=== PATIENT | female | born 1990 | race Caucasian/White ===

== ENCOUNTER 2019-02-13 16:52 | Emergency (ER) | payer OTHER ==
[~2019-02-13] VITALS: Ht 162.6 cm; Wt 59.0 kg
[2019-02-13] MEDS ORDERED: VYVANSE20 M1 (17:16)
== END 2019-02-13 19:38 | disposition home or self-care (01) ==
LOC: ER 16:52
DX: J03.80 Acute tonsillitis due to other specified organisms (principal); B96.89 Other specified bacterial agents as the cause of diseases classified elsewhere

== ENCOUNTER 2020-05-20 16:06 | Emergency (ER) | payer OTHER ==
[~2020-05-20] VITALS: Ht 157.5 cm; Wt 52.2 kg
[~2020-05-20 16:06] MED LIST: VYVANSE20 M1
== END 2020-05-20 18:50 | disposition home or self-care (01) ==
LOC: ER 16:06
DX: B34.9 Viral infection, unspecified (principal); Z20.828 Contact with and (suspected) exposure to other viral communicable diseases

== ENCOUNTER 2022-09-23 19:26 | Emergency (ER) | payer OTHER ==
[~2022-09-23] VITALS: Ht 162.6 cm; Wt 56.7 kg
== END 2022-09-23 22:27 | disposition home or self-care (01) ==
LOC: ER 19:26
DX: S29.9XXA Unspecified injury of thorax, initial encounter (principal); W01.0XXA Fall on same level from slipping, tripping and stumbling without subsequent striking against object, initial encounter; Y93.9 Activity, unspecified; Y92.9 Unspecified place or not applicable

== ENCOUNTER 2024-02-20 16:47 | Outpatient (CLI) | payer OTHER | END 2024-02-20 23:00 | disposition home or self-care (01) | LOC: RAD 16:47 | PROVIDERS: ATTEND General Practice | DX: R07.1 Chest pain on breathing (principal) ==

== ENCOUNTER 2025-03-26 18:03 | Emergency (ER) | payer OTHER ==
[~2025-03-26] VITALS: Ht 162.6 cm; Wt 56.7 kg
[2025-03-26] MEDS ORDERED: DROSP-EE-LEVOM1 EACH (18:13)
[2025-03-26] MEDS ORDERED: AMPHETAMINE SAL20 MG PO (18:13)
[2025-03-26 20:16] LABS: BASO % 1.1 % (0.1-1.2); EOS # 0.15 (0.04-0.54); EOS % 2.8 % (0.7-7.0); LYMPH # 1.49 (1.18-3.74); LYMPH % 28.3 % (19.3-53.1); MEAN PLATELET VOLUME 9.20 fl (9.4-12.4); MONO # 0.53 (0.24-0.82); MONO % 10.1 % (4.7-12.5); NEUT # 3.03 (1.56-6.13); NEUT % 57.5 % (34.0-71.1); RED CELL DISTRIBUTION WIDTH 11.6 % (11.6-14.4)
[2025-03-26 20:30] LABS: URINE APPEARANCE Clear; URINE BILIRRUBIN Negative (NEGATIVE); URINE BLOOD Negative; URINE COLOR Yellow; URINE GLUCOSE Negative (NEGATIVE); URINE KETONE Negative (NEGATIVE); URINE LEUKOCYTE Negative; URINE NITRATE Negative; URINE PROTEIN Negative (NEGATIVE); URINE UROBILINOGEN 0.2 E.U./dl
[2025-03-26 20:33] LABS: URINE BACTERIA 807.6 uL (0.0-1933); URINE EPITHELIAL CELLS 4.7 uL (0.0-38.8); URINE RBC 7.7 uL (0.0-20.8); URINE WBC 14.9 uL (0.0-23.2)
[2025-03-26 20:34] LABS: URINE CAST 0.43 uL (0.0-1.40)
[2025-03-26 20:40] LABS: COVID-19 AG NEGATIVE (NEGATIVE)
[2025-03-26 20:43] LABS: ALT/SGPT 26.0 U/L (12-78); AST/SGOT 15.0 U/L (15-37); BILIRUBIN TOTAL 0.17 mg/dL (0.3-1.2); BUN CREA RATIO 8.0 (7.0-25.0); CREATININE SERUM 0.89 mg/dL (0.55-1.02); GFR 71.76; GLOBULINA 3.6 G/DL (2.4-3.5); GLUCOSE FASTING 91.0 mg/dL (65-100); OSMOLALITY SERUM 281.0 MOSM/KG (275-295)
[2025-03-26] MEDS ORDERED: DOXYCYCLINE HY100 M2 PO (21:59)
== END 2025-03-26 22:07 | disposition home or self-care (01) ==
LOC: ER 18:03
PROVIDERS: General Practice
DX: L02.411 Cutaneous abscess of right axilla (principal); Z20.822 Contact with and (suspected) exposure to COVID-19